=== PATIENT | male | born 2000 | race Caucasian/White ===

== ENCOUNTER 2019-10-03 13:46 | Emergency (ER) | payer MEDICAID ==
[2019-10-03] MEDS ORDERED: Lidocaine 1% with EPINEPHrine 1:100,000 20 ML MDV INJECT ONE (13:51)
[2019-10-03] MEDS ORDERED: Bacitracin Oint 1 GM U/D Packet TOP ONE (14:04)
--- NOTE | 2019-10-03 14:16 | EDM.PDOC ---
Scribed by Tamara Burden 10/03/19 [id number] for Andrea Everett PA ED HPI GENERAL MEDICAL PROBLEM - General Chief Complaint: Skin Complaint Stated Complaint: FISH HOOK IN CHIN Time Seen by Provider: 10/03/19 13:49 Source of Information: Reports: Patient, Family, RN, RN Notes Reviewed History Limitations: Reports: No Limitations - History of Present Illness INITIAL COMMENTS - FREE TEXT/NARRATIVE: This 18 yo male patient was brought to the ED due getting a fishing hook stuck in his chin. The patient reports he was fishing in a boat when another person in the boat attempted to cast his line and caught the patient in the chin. The patient reports he attempted to remove the hook, but was unsuccessful. Onset: Today Duration: Minutes: Location: Reports: Face Quality: Reports: Ache Severity: Mild Improves with: Reports: None Worsens with: Reports: None Context: Reports: Activity Associated Symptoms: Reports: No Other Symptoms - Related Data Allergies Allergy/AdvReac Type Severity Reaction Status Date / Time No Known Allergies Allergy Verified 10/03/19 13:55 Home Meds: Home Meds . [No Known Home Meds] 10/03/19 [History] ED ROS GENERAL - Review of Systems Review Of Systems: Comprehensive ROS is negative, except as noted in HPI. ED EXAM, SKIN/RASH Exam: See Below Exam Limited By: No Limitations General Appearance: Alert, WD/WN, Anxious, Mild Distress Eye Exam: Bilateral Eye: EOMI, Normal Inspection, PERRL Ears: Normal External Exam, Normal Canal, Hearing Grossly Normal, Normal TMs Nose: Normal Inspection, Normal Mucosa, No Blood Throat/Mouth: Normal Inspection, Normal Lips, Normal Teeth, Normal Gums Head: Atraumatic, Normocephalic Neck: Normal Inspection, Supple, Non-Tender, Full Range of Motion Respiratory/Chest: No Respiratory Distress, Lungs Clear, Normal Breath Sounds, No Accessory Muscle Use, Chest Non-Tender Cardiovascular: Normal Peripheral Pulses, Regular Rate, Rhythm, No Edema, No Gallop, No JVD, No Murmur, No Rub GI/Abdominal: Normal Bowel Sounds, Soft, Non-Tender, No Organomegaly, No Distention, No Abnormal Bruit, No Mass (Male) Exam: Deferred Rectal (Males) Exam: Deferred Back Exam: Normal Inspection, Full Range of Motion, NT Extremities: Normal Inspection, Normal Range of Motion, Non-Tender, No Pedal Edema, Normal Capillary Refill Neurological: Alert, Oriented, CN II-XII Intact, Normal Cognition, Normal Gait, Normal Reflexes, No Motor/Sensory Deficits Psychiatric: Normal Affect, Normal Mood Skin: Wound/Incision Location, Skin: Face Lymphatic: No Adenopathy ED SKIN PROCEDURES - Foreign Body Removal Indication:: [place] in left chin Consent Obtained:: Patient Performing Doctor:: Andrea Everett Foreign Body Other Location Comment:: single hook in chin Anesthesia Type: Local (Lidocaine with Epi) Complications:: No Comments:: The fishing hook was removed after anesthesia was applied to the area. Tissue was removed from the yumiko of the hook using a scalpel without incident. Only minor bleeding from the area after hook removal. Course - Vital Signs Last Recorded V/S: Last Vital Signs Temp 37.4 C 10/03/19 13:47 Pulse 74 10/03/19 13:47 Resp 16 10/03/19 13:47 BP 125/76 10/03/19 13:47 Pulse Ox 98 10/03/19 13:47 - Orders/Labs/Meds Meds: Medications Discontinued Medications Generic Name Dose Route Start Last Admin Trade Name Freq PRN Reason Stop Dose Admin Bacitracin 1 dose 10/03/19 14:04 Bacitracin Oint 1 Gm TOP 10/03/19 14:05 ONETIME ONE Lidocaine/Epinephrine 20 ml 10/03/19 13:51 10/03/19 13:54 Xylocaine 1% With Epinephrine 1:100,000 INJECT 10/03/19 13:52 20 ml ONETIME ONE Administration Departure - Departure Time of Disposition: 14:07 Disposition: Home, Self-Care 01 Condition: Fair Clinical Impression: Fish hook injury of cheek Qualifiers: Encounter type: initial encounter Qualified Code(s): S09.93XA - Unspecified injury of face, initial encounter - Discharge Information *PRESCRIPTION DRUG MONITORING PROGRAM REVIEWED*: Not Applicable *COPY OF PRESCRIPTION DRUG MONITORING REPORT IN PATIENT MADAN: Not Applicable Forms: ED Department Discharge Care Plan Goals: The patient was advised of the examination results during the visit. The fishing hook was removed without incident. The wound was cleaned after removal and an antibiotic ointment was applied. If the patient has any additional symptoms or concerns, the patient should either return to the emergency department or visit his primary care facility. Sepsis Event Note (ED) - Focused Exam Vital Signs: Vital Signs Temp Pulse Resp BP Pulse Ox 10/03/19 13:47 37.4 C 74 16 125/76 98 I have read and agree with the documentation that has been completed regarding this visit. By signing this record, I attest that the documentation was completed in my physical presence and is an accurate record of the encounter.
== END 2019-10-03 14:15 | disposition home or self-care (01) ==
LOC: DL.ED 13:46
DX: S00.85XA Superficial foreign body of other part of head, initial encounter (principal); W45.8XXA Other foreign body or object entering through skin, initial encounter
CPT/HCPCS: 99283